=== PATIENT | female | born 1950 | race Caucasian/White ===

== ENCOUNTER → 2018-07-04 | Outpatient (CLI) | payer MEDICARE | END | disposition home or self-care (01) | LOC: CFH 10:18 | PROVIDERS: ATTEND Obstetrics & Gynecology | DX: Z12.31 Encounter for screening mammogram for malignant neoplasm of breast (principal) | CPT/HCPCS: 77063; 77067 ==

== ENCOUNTER 2019-07-22 10:35 | Inpatient (IN) | payer MEDICARE ==
[~2019-07-22] VITALS: Ht 162.6 cm; Wt 61.5 kg
[2019-07-22] MEDS ORDERED: SODIUM CHLORIDE FLUSH 10ML SYR IVF ONE (11:30)
[2019-07-22] MEDS ORDERED: ONDANSETRON 2MG/ML, 2ML IVPush ONE (11:30)
[2019-07-22] MEDS ORDERED: MORPHINE SULFATE 4 MG/ML, 1ML IVPush PRN ×2 (11:30→20:00)
[2019-07-22 11:57] LABS: BASOPHILS % (AUTO) 0 % (0-1); EOSINOPHILS % (AUTO) 0 % (1-7); LYMPHOCYTES # (AUTO) 0.29 x10^3/uL (1-3.4); LYMPHOCYTES % (AUTO) 8 % (22-44); MD NO; MEAN CORPUSCULAR HEMOGLOBIN 33.2 pg (27.0-34.8); MEAN CORPUSCULAR HGB CONC 33.4 g/dL (32.4-35.8); MEAN CORPUSCULAR VOLUME 99.2 fL (80-100); MEAN PLATELET VOLUME 7.7 fL (7.4-10.4); MONOCYTES # (AUTO) 0.07 x10^3/uL (0.2-0.8); MONOCYTES % (AUTO) 2 % (2-9); NEUTROPHILS # (AUTO) 3.52 x10^3/uL (1.8-6.8); NEUTROPHILS % (AUTO) 91 % (42-75); PLATELET COUNT 358 x10^3/uL (130-400); RED BLOOD COUNT 4.68 x10^6/uL (3.82-5.3); RED CELL DISTRIBUTION WIDTH 12.6 % (9.6-15.2)
[2019-07-22] MEDS ORDERED: SODIUM CHLORIDE 0.9% 1,000ML IVBOLUS ONE (12:00)
[2019-07-22 12:07] LABS: ALBUMIN 4.1 g/dL (3.4-5.0); ANION GAP 7 mmol/L (5-15); CALCIUM 9.8 mg/dL (8.5-10.1); CHLORIDE 101 mmol/L (98-107)
[2019-07-22 12:12] LABS: ALANINE AMINOTRANSFERASE 21 U/L (12-78); ALKALINE PHOSPHATASE 55 U/L (45-117); BILIRUBIN,TOTAL 1.2 mg/dL (0.2-1.0); CREATININE 1.11 mg/dL (0.55-1.02)
--- NOTE | 2019-07-22 12:36 | NUR ---
pt up to restroom for urine sample collection.
--- NOTE | 2019-07-22 13:00 | NUR ---
URINE SENT. PT PROVIDED WITH MORE WARM BLANKETS. DENIES ANY FURTHER NEEDS OR CONCERNS. CALL LIGHT IN REACH.
[2019-07-22 13:09] LABS: MICROSCOPIC AUTO
[2019-07-22] MEDS ORDERED: OMNIPAQUE 350 MG/ML, 100ML BOTTLE ONE (13:09)
[2019-07-22 13:10] LABS: CULTURE INDICATED? YES
[2019-07-22] MEDS ORDERED: CEFOTETAN 1 GM ONE (13:37)
[2019-07-22] MEDS ORDERED: ONDANSETRON 2MG/ML, 2ML ONE ×2 (13:37→14:11)
[2019-07-22] MEDS ORDERED: SUCCINYLCHOLINE 20 MG/ML, 10ML ONE (13:37)
[2019-07-22] MEDS ORDERED: PROPOFOL 10 MG/ML, 20ML ONE (13:37)
[2019-07-22] MEDS ORDERED: GLYCOPYRROLATE 0.2MG/1ML, 5ML ONE (13:37)
[2019-07-22] MEDS ORDERED: NEOSTIGMINE 1 MG/ML, 10ML ONE (13:37)
[2019-07-22] MEDS ORDERED: ROCURONIUM 10MG/ML,5ML ONE (13:37)
[2019-07-22] MEDS ORDERED: MORPHINE SULFATE 4 MG/ML, 1ML ONE (14:11)
[2019-07-22] MEDS ORDERED: CEFOTETAN PMX 1GM/50ML 50 ML ONE (14:11)
--- NOTE | 2019-07-22 14:24 | NUR ---
dr lyons spoke with dr silva
[2019-07-22] MEDS ORDERED: CEFOTETAN PMX 1GM/50ML 50 ML IV ONE (14:30)
--- NOTE | 2019-07-22 14:53 | NUR ---
REPORT FROM MADISON Macias RN. HOSPITALIST AT BEDSIDE.
[2019-07-22] MEDS ORDERED: SODIUM CHLORIDE FLUSH 10ML SYR IVF PRN (15:00)
[2019-07-22] MEDS ORDERED: SENNA/DOCUSATE TABLET PO PRN (15:00)
[2019-07-22] MEDS ORDERED: morphine SULFATE 10 MG/ML, 1ML IVPush PRN (15:00)
[2019-07-22] MEDS ORDERED: METRONIDAZOLE PMX 500MG/100ML 100 ML IV ONE (15:00)
[2019-07-22] MEDS ORDERED: ONDANSETRON ODT 4 MG PO PRN (15:00)
[2019-07-22] MEDS ORDERED: ACETAMINOPHEN 325 MG TABLET PO PRN ×2 (15:00→20:00)
[2019-07-22] MEDS ORDERED: METRONIDAZOLE PMX 500MG/100ML 100 ML ONE (15:10)
[2019-07-22] MEDS: CEFOTETAN PMX 2GM/50ML 50 ML IV SCH (15:20)
[2019-07-22] MEDS: METRONIDAZOLE PMX 500MG/100ML 100 ML IV SCH (15:21)
--- NOTE | 2019-07-22 15:21 | NUR ---
2nd abx started per oct. 5 rights verified prior. 3 p's addressed. POC discussed. Awaiting room assignment.
--- NOTE | 2019-07-22 15:38 | NUR ---
REPORT TO TR CABRERA.
[2019-07-22] MEDS ORDERED: VALA500T4 PO (16:13)
[2019-07-22] MEDS ORDERED: CETI1TAB6 PO (16:16)
[2019-07-22] MEDS ORDERED: CALC-192 PO (16:16)
[2019-07-22] MEDS ORDERED: CRAN500T2 PO (16:16)
[2019-07-22] MEDS ORDERED: L.AC1CAP6 PO (16:16)
[2019-07-22] MEDS: LACTATED RINGERS 1,000 ML IV SCH ×2 (17:00→23:00)
[2019-07-22] MEDS ORDERED: BUPIVACAINE/EPI 0.5% 1:200K ONE (18:22)
[2019-07-22] MEDS ORDERED: FENTANYL PF 100 MCG/2ML ONE ×2 (18:34→19:12)
[2019-07-22] MEDS ORDERED: MIDAZOLAM 1 MG/ML, 2ML ONE (18:34)
[2019-07-22] MEDS ORDERED: LIDOCAINE GEL 2%, 5ML ONE (18:35)
[2019-07-22] MEDS ORDERED: BUPIVACAINE/EPI 0.5% 1:200K INFIL ONE (18:48)
[2019-07-22] MEDS ORDERED: OXYcodone 5 MG/5 ML ORAL.SOL UDC ONE (19:53)
[2019-07-22] MEDS ORDERED: MEPERIDINE/PF 25MG/ML,1ML ONE (19:53)
[2019-07-22] MEDS ORDERED: hydrALAzine 20 MG/ML, 1ML IV PRN (20:00)
[2019-07-22] MEDS ORDERED: OXYcodone 5 MG/5 ML ORAL.SOL UDC PO PRN (20:00)
[2019-07-22] MEDS ORDERED: FENTANYL PF 100 MCG/2ML IV PRN (20:00)
[2019-07-22] MEDS ORDERED: MEPERIDINE/PF 25MG/ML,1ML IVPush PRN (20:00)
[2019-07-22] MEDS ORDERED: HYDROmorphone 2 MG/ML, 1ML IVPush PRN (20:00)
[2019-07-22] MEDS ORDERED: HALOPERIDOL 5 MG/ML IV PRN (20:00)
[2019-07-22] MEDS ORDERED: LABETALOL 5MG/ML, 20ML IV PRN (20:00)
[2019-07-22] MEDS ORDERED: PROMETHAZINE 25 MG/ML, 1ML IV PRN (20:00)
[2019-07-22 21:00] VITALS: BP 97/63
[2019-07-22] MEDS ORDERED: OXYcodone/APAP 5/325MG TABLET PO PRN (21:00)
[2019-07-23] MEDS: METRONIDAZOLE PMX 500MG/100ML 100 ML IV SCH ×4 (00:24→22:45)
[2019-07-23 02:00] VITALS: BP 96/63
[2019-07-23] MEDS: CEFOTETAN PMX 2GM/50ML 50 ML IV SCH (03:00)
[2019-07-23 05:16] LABS: MEAN CORPUSCULAR HEMOGLOBIN 32.7 pg (27.0-34.8); MEAN CORPUSCULAR HGB CONC 32.7 g/dL (32.4-35.8); MEAN CORPUSCULAR VOLUME 100.2 fL (80-100); MEAN PLATELET VOLUME 7.3 fL (7.4-10.4); PLATELET COUNT 266 x10^3/uL (130-400); RED BLOOD COUNT 3.71 x10^6/uL (3.82-5.3); RED CELL DISTRIBUTION WIDTH 12.8 % (9.6-15.2)
[2019-07-23 05:23] LABS: ALANINE AMINOTRANSFERASE 22 U/L (12-78); ALBUMIN 2.5 g/dL (3.4-5.0); ANION GAP 6 mmol/L (5-15); CALCIUM 8.4 mg/dL (8.5-10.1); CHLORIDE 104 mmol/L (98-107)
[2019-07-23 05:26] LABS: ALKALINE PHOSPHATASE 32 U/L (45-117); BILIRUBIN,TOTAL 0.5 mg/dL (0.2-1.0); CREATININE 1.59 mg/dL (0.55-1.02)
[2019-07-23 05:54] LABS: MD YES
[2019-07-23 05:58] LABS: BAND#(MANUAL) 2.75 x10^3/uL; BANDS%(MANUAL) 41 % (0-7); LYMPHS% (MANUAL) 12 % (22-44); METAMYELOCYTES# (MANUAL) 0.74 x10^3/uL (0-0); METAMYELOCYTES% (MANUAL) 11 % (0-1); MONOS% (MANUAL) 3 % (2-9); SEG#(MANUAL) 2.21 x10^3/uL (1.8-6.8); SEGS% (MANUAL) 33 % (42-75)
[2019-07-23 06:01] LABS: POLYCHROMASIA 1+
[2019-07-23 06:02] LABS: <PLATELET ESTIMATE> ADEQUATE; <PLT MORPHOLOGY> NORMAL PLT MORPH; PMNS WITH VACUOLES 1+
[2019-07-23 08:58] VITALS: BP 96/62
[2019-07-23] MEDS ORDERED: ENOXAPARIN 40 MG/0.4 ML SQ SCH (09:00)
[2019-07-23] MEDS: LACTATED RINGERS 1,000 ML IV SCH ×2 (10:40→22:45)
[2019-07-23 12:55] VITALS: BP 106/69
[2019-07-23 19:18] VITALS: BP 109/71
[2019-07-23] MEDS: ONDANSETRON 2MG/ML, 2ML IVPush PRN (22:45)
[2019-07-24] MEDS ORDERED: CEFOTETAN PMX 2GM/50ML 50 ML IV SCH (03:00)
[2019-07-24 03:47] VITALS: BP 114/71
[2019-07-24] MEDS: ONDANSETRON 2MG/ML, 2ML IVPush PRN ×3 (06:26→20:53)
[2019-07-24] MEDS: METRONIDAZOLE PMX 500MG/100ML 100 ML IV SCH ×3 (06:26→22:53)
[2019-07-24 06:57] VITALS: BP 129/81
[2019-07-24] MEDS ORDERED: ENOXAPARIN 30 MG/0.3 ML SQ SCH (07:00)
[2019-07-24 09:34] LABS: MEAN CORPUSCULAR HEMOGLOBIN 32.7 pg (27.0-34.8); MEAN CORPUSCULAR HGB CONC 32.7 g/dL (32.4-35.8); MEAN CORPUSCULAR VOLUME 99.8 fL (80-100); MEAN PLATELET VOLUME 7.4 fL (7.4-10.4); PLATELET COUNT 298 x10^3/uL (130-400); RED BLOOD COUNT 4.01 x10^6/uL (3.82-5.3); RED CELL DISTRIBUTION WIDTH 12.9 % (9.6-15.2)
[2019-07-24 09:35] LABS: ALANINE AMINOTRANSFERASE 20 U/L (12-78); ALBUMIN 2.5 g/dL (3.4-5.0); ANION GAP 5 mmol/L (5-15); CHLORIDE 100 mmol/L (98-107)
[2019-07-24 09:38] LABS: ALKALINE PHOSPHATASE 51 U/L (45-117); BILIRUBIN,TOTAL 0.3 mg/dL (0.2-1.0); CREATININE 1.03 mg/dL (0.55-1.02); TOTAL PROTEIN 6.6 g/dL (6.4-8.2)
[2019-07-24] MEDS: LACTATED RINGERS 1,000 ML IV SCH (09:40)
[2019-07-24 10:12] LABS: MD YES
[2019-07-24 10:14] LABS: LYMPH#(MANUAL) 0.26 x10^3/uL (1-3.4); LYMPHS% (MANUAL) 2 % (22-44); MONOS#(MANUAL) 0.26 x10^3/uL (0.3-2.7); MONOS% (MANUAL) 2 % (2-9)
[2019-07-24 10:16] LABS: BAND#(MANUAL) 5.68 x10^3/uL; BANDS%(MANUAL) 44 % (0-7); METAMYELOCYTES# (MANUAL) 0.26 x10^3/uL (0-0); METAMYELOCYTES% (MANUAL) 2 % (0-1); SEG#(MANUAL) 6.45 x10^3/uL (1.8-6.8); SEGS% (MANUAL) 50 % (42-75)
[2019-07-24 10:18] LABS: <PLATELET ESTIMATE> ADEQUATE; <PLT MORPHOLOGY> NORMAL PLT MORPH; PMNS WITH VACUOLES 1+
[2019-07-24] MEDS: POLYETHYLENE GLYCOL 17 GM PACKET PO PRN (11:28)
[2019-07-24] MEDS ORDERED: BISACODYL 10 MG SUPP PR PRN (12:00)
[2019-07-24] MEDS: SODIUM CHLORIDE 0.9% 1,000 ML IV SCH (12:09)
[2019-07-24] MEDS: DOCUSATE 100 MG CAPSULE PO SCH ×2 (12:12→20:53)
[2019-07-24 14:19] VITALS: BP 122/79
[2019-07-24] MEDS: CEFOTETAN PMX 2GM/50ML 50 ML IV SCH (15:00)
[2019-07-24 19:52] VITALS: BP 123/69
[2019-07-25 01:41] VITALS: BP 116/69
[2019-07-25] MEDS: SODIUM CHLORIDE 0.9% 1,000 ML IV SCH ×2 (03:32→15:48)
[2019-07-25] MEDS: ONDANSETRON 2MG/ML, 2ML IVPush PRN (03:32)
[2019-07-25] MEDS: CEFOTETAN PMX 2GM/50ML 50 ML IV SCH (03:45)
[2019-07-25 05:54] LABS: MD YES; MEAN CORPUSCULAR HEMOGLOBIN 33.3 pg (27.0-34.8); MEAN CORPUSCULAR HGB CONC 33.2 g/dL (32.4-35.8); MEAN CORPUSCULAR VOLUME 100.2 fL (80-100); MEAN PLATELET VOLUME 7.3 fL (7.4-10.4); PLATELET COUNT 348 x10^3/uL (130-400); RED BLOOD COUNT 3.65 x10^6/uL (3.82-5.3); RED CELL DISTRIBUTION WIDTH 12.5 % (9.6-15.2)
[2019-07-25 06:03] LABS: ANION GAP 5 mmol/L (5-15); CALCIUM 8.3 mg/dL (8.5-10.1); CHLORIDE 101 mmol/L (98-107); CREATININE 1.14 mg/dL (0.55-1.02)
[2019-07-25 06:23] LABS: LYMPH#(MANUAL) 1.09 x10^3/uL (1-3.4); LYMPHS% (MANUAL) 7 % (22-44); MONOS#(MANUAL) 0.31 x10^3/uL (0.3-2.7); MONOS% (MANUAL) 2 % (2-9); SEGS% (MANUAL) 91 % (42-75)
[2019-07-25 06:24] LABS: <PLATELET ESTIMATE> ADEQUATE; PMNS WITH VACUOLES 1+; SMALL PLATELETS 1+
[2019-07-25] MEDS: METRONIDAZOLE PMX 500MG/100ML 100 ML IV SCH (06:46)
[2019-07-25] MEDS: ENOXAPARIN 40 MG/0.4 ML SQ SCH (06:46)
[2019-07-25 07:07] VITALS: BP 143/83
[2019-07-25] MEDS: DOCUSATE 100 MG CAPSULE PO SCH ×2 (08:17→21:14)
[2019-07-25] MEDS: POLYETHYLENE GLYCOL 17 GM PACKET PO PRN (10:13)
[2019-07-25 13:57] VITALS: BP 124/74
[2019-07-25] MEDS: AMPICILLIN/SULBACTAM 3 GM in SODIUM CHLORIDE 0.9% 100 ML IV SCH ×2 (15:48→21:19)
[2019-07-25 20:23] VITALS: BP 117/66
[2019-07-26 03:48] VITALS: BP 122/70
[2019-07-26] MEDS: AMPICILLIN/SULBACTAM 3 GM in SODIUM CHLORIDE 0.9% 100 ML IV SCH ×4 (04:05→21:45)
[2019-07-26] MEDS: SODIUM CHLORIDE 0.9% 1,000 ML IV SCH (04:05)
[2019-07-26 05:39] LABS: BASOPHILS % (AUTO) 0 % (0-1); EOSINOPHILS % (AUTO) 1 % (1-7); LYMPHOCYTES # (AUTO) 0.78 x10^3/uL (1-3.4); LYMPHOCYTES % (AUTO) 6 % (22-44); MD NO; MEAN CORPUSCULAR HEMOGLOBIN 33.1 pg (27.0-34.8); MEAN CORPUSCULAR HGB CONC 32.9 g/dL (32.4-35.8); MEAN CORPUSCULAR VOLUME 100.5 fL (80-100); MEAN PLATELET VOLUME 7.3 fL (7.4-10.4); MONOCYTES # (AUTO) 0.61 x10^3/uL (0.2-0.8); MONOCYTES % (AUTO) 5 % (2-9); NEUTROPHILS # (AUTO) 10.98 x10^3/uL (1.8-6.8); NEUTROPHILS % (AUTO) 88 % (42-75); PLATELET COUNT 369 x10^3/uL (130-400); RED CELL DISTRIBUTION WIDTH 13.1 % (9.6-15.2)
[2019-07-26 05:44] LABS: ANION GAP 7 mmol/L (5-15); CALCIUM 7.8 mg/dL (8.5-10.1); CHLORIDE 104 mmol/L (98-107); CREATININE 0.67 mg/dL (0.55-1.02)
[2019-07-26] MEDS: ENOXAPARIN 40 MG/0.4 ML SQ SCH (06:37)
[2019-07-26 07:00] VITALS: BP 122/77
[2019-07-26] MEDS: POLYETHYLENE GLYCOL 17 GM PACKET PO PRN (07:54)
[2019-07-26] MEDS: DOCUSATE 100 MG CAPSULE PO SCH ×2 (07:54→21:00)
[2019-07-26] MEDS ORDERED: POTASSIUM CHLORIDE 40 MEQ in SODIUM CHLORIDE 0.9% 500 ML IV ONE (08:00)
[2019-07-26 12:58] VITALS: BP 129/73
[2019-07-26 19:47] VITALS: BP 128/74
[2019-07-27 03:00] VITALS: BP 136/76
[2019-07-27] MEDS: AMPICILLIN/SULBACTAM 3 GM in SODIUM CHLORIDE 0.9% 100 ML IV SCH (04:09)
[2019-07-27 06:10] LABS: MEAN CORPUSCULAR HEMOGLOBIN 32.7 pg (27.0-34.8); MEAN CORPUSCULAR HGB CONC 33.3 g/dL (32.4-35.8); MEAN CORPUSCULAR VOLUME 98.1 fL (80-100); MEAN PLATELET VOLUME 7.1 fL (7.4-10.4); PLATELET COUNT 423 x10^3/uL (130-400); RED BLOOD COUNT 3.83 x10^6/uL (3.82-5.3)
[2019-07-27 06:13] LABS: ALBUMIN 2.3 g/dL (3.4-5.0); ANION GAP 5 mmol/L (5-15); CHLORIDE 105 mmol/L (98-107)
[2019-07-27 06:23] LABS: ALANINE AMINOTRANSFERASE 15 U/L (12-78); ALKALINE PHOSPHATASE 46 U/L (45-117); BILIRUBIN,TOTAL 0.4 mg/dL (0.2-1.0); CREATININE 0.72 mg/dL (0.55-1.02); TOTAL PROTEIN 5.7 g/dL (6.4-8.2)
[2019-07-27] MEDS: ENOXAPARIN 40 MG/0.4 ML SQ SCH (06:41)
[2019-07-27 06:56] LABS: HCT (SEDRATE) 37.6 % (34.6-47.8)
[2019-07-27] MEDS ORDERED: MAGNESIUM OXIDE 400 MG TABLET PO ONE (07:00)
[2019-07-27] MEDS ORDERED: POTASSIUM CHLORIDE 40 MEQ in SODIUM CHLORIDE 0.9% 500 ML IV ONE (07:00)
[2019-07-27 07:15] LABS: BASOPHILS # (AUTO) 0.01 x10^3/uL (0-0.1); BASOPHILS % (AUTO) 0 % (0-1); EOSINOPHILS # (AUTO) 0.07 x10^3/uL (0-0.4); EOSINOPHILS % (AUTO) 1 % (1-7); LYMPHOCYTES # (AUTO) 0.94 x10^3/uL (1-3.4); LYMPHOCYTES % (AUTO) 9 % (22-44); MD SCAN; MONOCYTES # (AUTO) 1.09 x10^3/uL (0.2-0.8); MONOCYTES % (AUTO) 10 % (2-9); NEUTROPHILS # (AUTO) 8.55 x10^3/uL (1.8-6.8); NEUTROPHILS % (AUTO) 80 % (42-75)
[2019-07-27 07:24] VITALS: BP 123/78
[2019-07-27] MEDS: DOCUSATE 100 MG CAPSULE PO SCH (07:26)
[2019-07-27] MEDS: CIPROFLOXACIN 500 MG TABLET PO SCH ×2 (10:16→22:19)
[2019-07-27] MEDS: metroNIDAZOLE 500 MG TABLET PO SCH ×2 (10:16→17:55)
[2019-07-27 10:25] LABS: MEAN CORPUSCULAR HEMOGLOBIN 32.3 pg (27.0-34.8); MEAN CORPUSCULAR HGB CONC 32.8 g/dL (32.4-35.8); MEAN CORPUSCULAR VOLUME 98.4 fL (80-100); PLATELET COUNT 437 x10^3/uL (130-400); RED BLOOD COUNT 4.16 x10^6/uL (3.82-5.3); RED CELL DISTRIBUTION WIDTH 12.7 % (9.6-15.2)
[2019-07-27 11:09] LABS: CHLORIDE 105 mmol/L (98-107)
[2019-07-27 11:17] LABS: ANION GAP 9 mmol/L (5-15); CREATININE 0.75 mg/dL (0.55-1.02)
[2019-07-27 11:26] LABS: BASOPHILS # (AUTO) 0.01 x10^3/uL (0-0.1); BASOPHILS % (AUTO) 0 % (0-1); EOSINOPHILS # (AUTO) 0.05 x10^3/uL (0-0.4); EOSINOPHILS % (AUTO) 0 % (1-7); LYMPHOCYTES # (AUTO) 1.16 x10^3/uL (1-3.4); LYMPHOCYTES % (AUTO) 10 % (22-44); MD SCAN; MONOCYTES % (AUTO) 9 % (2-9); NEUTROPHILS # (AUTO) 9.13 x10^3/uL (1.8-6.8); NEUTROPHILS % (AUTO) 81 % (42-75)
[2019-07-27 13:07] VITALS: BP 115/75
[2019-07-27 19:35] VITALS: BP 125/67
[2019-07-28 02:06] VITALS: BP 128/67
[2019-07-28] MEDS: metroNIDAZOLE 500 MG TABLET PO SCH ×3 (02:08→17:41)
[2019-07-28 05:59] LABS: CHLORIDE 105 mmol/L (98-107)
[2019-07-28] MEDS: ENOXAPARIN 40 MG/0.4 ML SQ SCH (06:02)
[2019-07-28 06:10] LABS: ANION GAP 7 mmol/L (5-15); CALCIUM 7.7 mg/dL (8.5-10.1)
[2019-07-28 06:52] LABS: BASOPHILS # (AUTO) 0.03 x10^3/uL (0-0.1); BASOPHILS % (AUTO) 0 % (0-1); EOSINOPHILS # (AUTO) 0.11 x10^3/uL (0-0.4); EOSINOPHILS % (AUTO) 1 % (1-7); LYMPHOCYTES % (AUTO) 11 % (22-44); MD NO; MEAN CORPUSCULAR HEMOGLOBIN 32.7 pg (27.0-34.8); MEAN CORPUSCULAR HGB CONC 32.9 g/dL (32.4-35.8); MEAN CORPUSCULAR VOLUME 99.4 fL (80-100); MEAN PLATELET VOLUME 7.1 fL (7.4-10.4); MONOCYTES # (AUTO) 1.14 x10^3/uL (0.2-0.8); MONOCYTES % (AUTO) 10 % (2-9); NEUTROPHILS # (AUTO) 8.94 x10^3/uL (1.8-6.8); NEUTROPHILS % (AUTO) 78 % (42-75); PLATELET COUNT 462 x10^3/uL (130-400); RED BLOOD COUNT 3.54 x10^6/uL (3.82-5.3); RED CELL DISTRIBUTION WIDTH 12.9 % (9.6-15.2)
[2019-07-28 06:56] VITALS: BP 117/68
[2019-07-28] MEDS ORDERED: POTASSIUM CHLORIDE 20 MEQ TAB.ER.PRT PO ONE (08:30)
[2019-07-28] MEDS: CIPROFLOXACIN 500 MG TABLET PO SCH ×2 (09:51→22:08)
[2019-07-28 13:32] VITALS: BP 129/77
[2019-07-28 19:45] VITALS: BP 121/74
[2019-07-29] MEDS: metroNIDAZOLE 500 MG TABLET PO SCH ×2 (02:27→10:02)
[2019-07-29 02:34] VITALS: BP 126/76
[2019-07-29] MEDS: ENOXAPARIN 40 MG/0.4 ML SQ SCH (06:29)
[2019-07-29 08:29] VITALS: BP 120/72
[2019-07-29] MEDS ORDERED: POTASSIUM CHLORIDE 20 MEQ TAB.ER.PRT PO ONE (09:30)
[2019-07-29] MEDS ORDERED: CIPR500T87 PO (09:41)
[2019-07-29] MEDS ORDERED: METR500T PO (09:41)
[2019-07-29] MEDS: CIPROFLOXACIN 500 MG TABLET PO SCH (10:02)
== END 2019-07-29 11:55 | disposition home or self-care (01) | DRG 853 ==
LOC: ED 14:20 → EDIP 14:59 → 4NE 16:08 → DCLOUNGE 07-29 11:42
PROVIDERS: ADMIT Family Medicine; ATTEND Internal Medicine
PROC: 0DTJ4ZZ Resection of Appendix, Percutaneous Endoscopic Approach (ICD-10-PCS; principal; 2019-07-22 19:00)
DX: A41.9 Sepsis, unspecified organism (principal); K35.33 Acute appendicitis with perforation, localized peritonitis, and gangrene, with abscess; K56.7 Ileus, unspecified; N17.9 Acute kidney failure, unspecified; E87.1 Hypo-osmolality and hyponatremia; K38.1 Appendicular concretions; Z88.8 Allergy status to other drugs, medicaments and biological substances; D12.6 Benign neoplasm of colon, unspecified; J30.9 Allergic rhinitis, unspecified; K57.90 Diverticulosis of intestine, part unspecified, without perforation or abscess without bleeding; M81.0 Age-related osteoporosis without current pathological fracture; Z90.49 Acquired absence of other specified parts of digestive tract
CPT/HCPCS: 36415; 71045; 74018; 74177; 80048; 80053; 81001; 83690; 83735; 84132; 85025; 85651; 86140; 87040; 87086; 88304; 93005; 96365; 96375; C1729; G0378; J0295; J1650; J2250; J2405; J2704; J2710; J3010; J3480; Q0162; Q9967; J0330; J2175; J2270; J3490; J7030; J7040; J7120

== ENCOUNTER → 2019-08-20 | Outpatient (CLI) | payer MEDICARE ==
[~2019-08-20] MED LIST: CALC-192 PO; CETI1TAB6 PO; CIPR500T87 PO; CRAN500T2 PO; L.AC1CAP6 PO; METR500T PO; OMNIPAQUE 350 MG/ML, 100ML BOTTLE ONE; VALA500T4 PO
== END | disposition home or self-care (01) ==
LOC: CFH 08:53
PROVIDERS: ATTEND Internal Medicine Infectious Disease
DX: K35.30 Acute appendicitis with localized peritonitis, without perforation or gangrene (principal); N83.291 Other ovarian cyst, right side; Z90.89 Acquired absence of other organs
CPT/HCPCS: 74177; Q9967